=== PATIENT | male | born 1965 | race American Indian/Alaskan Native ===

== ENCOUNTER 2019-03-23 11:26 | Emergency (ER) | payer SELFPAY ==
[2019-03-23] MEDS ORDERED: HYDROmorphone 1 MG/1 ML INJ IV ONE ×3 (11:41→14:10)
[2019-03-23] MEDS ORDERED: ONDANSETRON 4 MG/2 ML INJ IV ONE ×2 (11:41→14:11)
--- NOTE | 2019-03-23 11:43 | Emergency Department Report ---
ED Fall HPI - General Stated Complaint: FELL OFF ROOF Time Seen by Provider: 03/23/19 11:31 Source: patient, family Mode of arrival: Ambulatory Limitations: No Limitations - History of Present Illness Initial Comments: Patient is a 53-year-old male that presents emergency room with complaints of neck pain and back pain and headache. Patient states he fell off a ladder approximately 10-12 feet in the air. Patient states he landed on his neck back of his head and middle back. Patient states his pain is 10 out of 10. Patient states pain is worse with movement and better with rest. Patient arrived via POV and the nursing staff remove the patient from the car and placed immediately on a backboard and a c-collar. Patient states he's having flank pain as well. MD Complaint: fall -: Sudden Fall From: from height (distance) (10 -12 feet) When Fall Occurred: unsure Fall Witnessed: yes, by bystander Place Fall Occurred: home Loss of Consciousness: unsure Prolonged Down Time?: no Symptoms Prior to Fall: none Location: head, neck, back Severity: severe Severity scale (0 -10): 10 Quality: stabbing Context: tripped/slipped Associated Symptoms: headache, neck pain - Related Data Previous Rx's Medication Instructions Recorded Last Taken Type Acetaminophen/Codeine [Tylenol 1 tab PO Q4HR PRN #12 tablet 03/23/19 Unknown Rx /Codeine # 3 tab] Cyclobenzaprine [Flexeril] 10 mg PO BID PRN #20 tablet 03/23/19 Unknown Rx Allergies Allergy/AdvReac Type Severity Reaction Status Date / Time No Known Allergies Allergy Unverified 03/23/19 11:43 ED Review of Systems ROS: Stated complaint: FELL OFF ROOF Other details as noted in HPI Constitutional: denies: chills, fever Eyes: denies: eye pain, eye discharge, vision change ENT: denies: ear pain, throat pain Respiratory: denies: cough, shortness of breath, wheezing Cardiovascular: chest pain. denies: palpitations Endocrine: no symptoms reported Gastrointestinal: abdominal pain. denies: nausea, diarrhea Genitourinary: denies: urgency, dysuria Musculoskeletal: back pain. denies: joint swelling, arthralgia Skin: denies: rash, lesions Neurological: denies: headache, weakness, paresthesias Psychiatric: denies: anxiety, depression Hematological/Lymphatic: denies: easy bleeding, easy bruising ED Past Medical Hx - Past Medical History Previous Medical History?: Yes Hx Hypertension: Yes - Surgical History Past Surgical History?: Yes - Family History Family history: no significant - Social History Smoking Status: Never Smoker Substance Use Type: None - Medications Home Medications: Home Medications Medication Instructions Recorded Confirmed Last Taken Type Acetaminophen/Codeine [Tylenol 1 tab PO Q4HR PRN #12 tablet 03/23/19 Unknown Rx /Codeine # 3 tab] Cyclobenzaprine [Flexeril] 10 mg PO BID PRN #20 tablet 03/23/19 Unknown Rx ED Physical Exam - General Limitations: No Limitations General appearance: alert, in no apparent distress - Head Head exam: Present: atraumatic, normocephalic - Eye Eye exam: Present: normal appearance, PERRL Pupils: Present: normal accommodation - ENT ENT exam: Present: mucous membranes moist - Neck Neck exam: Present: tenderness, other (in c-collar) - Respiratory Respiratory exam: Present: normal lung sounds bilaterally, chest wall tendern ess. Absent: respiratory distress - Cardiovascular Cardiovascular Exam: Present: regular rate, normal rhythm. Absent: systolic murmur, diastolic murmur, rubs, gallop - GI/Abdominal GI/Abdominal exam: Present: soft, tenderness, normal bowel sounds. Absent: distended - Rectal Rectal exam: Present: deferred - Extremities Exam Extremities exam: Present: normal inspection, full ROM - Back Exam Back exam: Present: normal inspection, tenderness, CVA tenderness (R), CVA tenderness (L), paraspinal tenderness, vertebral tenderness - Neurological Exam Neurological exam: Present: alert, oriented X3 - Psychiatric Psychiatric exam: Present: normal affect, normal mood - Skin Skin exam: Present: warm, dry, intact, normal color. Absent: rash ED Course Vital Signs 03/23/19 03/23/19 03/23/19 11:35 11:39 11:41 Temperature 97.5 F L Pulse Rate 62 61 Respiratory 18 18 Rate Blood Pressure 142/96 O2 Sat by Pulse 99 99 Oximetry 03/23/19 03/23/19 03/23/19 12:00 12:15 13:00 Temperature Pulse Rate 53 L 54 L 49 L Respiratory 13 12 Rate Blood Pressure 142/96 134/100 134/91 O2 Sat by Pulse 97 99 96 Oximetry 03/23/19 03/23/19 03/23/19 13:05 13:15 13:45 Temperature Pulse Rate 52 L Respiratory 16 10 L Rate Blood Pressure 131/90 140/95 O2 Sat by Pulse 96 96 Oximetry - Reevaluation(s) Reevaluation #1: Initial evaluation done. Patient currently in a c-collar. Patient examined and found to have back and neck tenderness. Patient also found to have line tenderness as well as chest tenderness. . Patient log rolled in accordance with ATLS guidelines. Patient will have a tucker scan and patient will be given pain medications. 03/23/19 11:43 Reevaluation #2: I discussed the current results with patient. Patient states his pain is better. Patient's c-collar removed since his C-spine is negative by CT. 03/23/19 14:31 Reevaluation #3: I discussed all results with patient. Discussed plan of care with patient. Patient stable for discharge. Patient discharged home. Patient agrees plan of care. Patient given discharge instructions. Patient given medication instructions. Patient voiced understanding of all instructions. 03/23/19 15:33 ED Medical Decision Making - Lab Data Result diagrams: 03/23/19 11:35 03/23/19 11:35 - Radiology Data Radiology results: report reviewed CT thoracic spine without contrast INDICATION: trauma. fall. pain. TECHNIQUE: Axial imaging performed through the thoracic spine without the use of contrast. Sagittal and coronal reconstructed images were also reviewed. All CT scans at this location are performed using CT dose reduction for ALARA by means of automated exposure control. COMPARISON: CT chest from today FINDINGS: Alignment: Spinal alignment is normal. Bones: There is no acute osseous abnormality. Mild multilevel discogenic DJD is present. Soft tissues: No acute or significant incidental soft tissue abnormality. IMPRESSION: No acute abnormality. NONENHANCED CT SCAN OF THE HEAD: INDICATION / CLINICAL INFORMATION: 53 years Male; trauma. fall. pain. TECHNIQUE: Routine CT head without contrast. All CT scans at this location are performed using CT dose reduction for ALARA by means of automated exposure control. COMPARISON: None. FINDINGS: BRAIN / INTRACRANIAL CONTENTS: I do not see intracranial sequela from the trauma. No scalp hematoma or air-fluid level in the visualized portions of the paranasal sinuses. No acute hemorrhage, mass effect, midline shift, hydrocephalus, or acute, large territorial infarct. No chronic infarct or focal atrophy. Normal brain volume and ventricular/sulcal size for age. No significant white matter abnormality. Please note these images have poor [id number] resulting in decreased contrast resolution. CRANIOCERVICAL JUNCTION: No significant abnormality. ORBITS: No significant abnormality of visualized orbits. SINUSES / MASTOIDS: No significant abnormality of the visualized paranasal sinuses or mastoid air cells. ADDITIONAL FINDINGS: None. IMPRESSION: I do not see intracranial sequela from the trauma. CT CHEST, ABDOMEN, AND PELVIS WITH IV CONTRAST INDICATION: Chest and abdominal pain after fall from roof. TECHNIQUE: Axial CT images were obtained through the chest, abdomen, and pelvis after 100 mL Omnipaque [address] scans at this location are performed using CT dose reduction for ALARA by means of automated exposure control. COMPARISON: None available. FINDINGS: MEDIASTINUM: No significant abnormality. HEART: No significant abnormality. THORACIC AORTA and ARTERIES: No significant abnormality. LUNGS: Mild dependent atelectasis is seen bilaterally without an additional significant pulmonary abnormality, pneumothorax or pleural effusion. LIVER: No significant abnormality. BILIARY:No significant abnormality. PANCREAS: No significant abnormality. SPLEEN: No significant abnormality. ADRENALS: No significant abnormality. KIDNEYS AND URETERS: There is a subcentimeter cyst along the right upper renal pole without additional significant abnormalities. GI TRACT:No significant abnormality of the stomach, small bowel or colon. Normal appendix. PERITONEUM: No free fluid. No free air. No fluid collection. LYMPH NODES: No significant adenopathy. AORTA and ARTERIES: No significant abnormality. URINARY BLADDER: No significant abnormality. REPRODUCTIVE ORGANS: No significant abnormality. ADDITIONAL FINDINGS: None. SKELETAL SYSTEM: No significant abnormality. IMPRESSION: No acute abnormality of the chest, abdomen or pelvis. CT spine spine without contrast INDICATION: trauma. fall. pain. Acute neck pain TECHNIQUE: Axial imaging performed through the cervical spine without the use of contrast. Sagittal and coronal reconstructed images were also reviewed. All CT scans at this location are performed using CT dose reduction for ALARA by means of automated exposure control. COMPARISON: None FINDINGS: Alignment: Spinal alignment is normal. Bones: There is no acute osseous abnormality. Mild multilevel discogenic DJD is present. Soft tissues: No acute or significant incidental soft tissue abnormality. IMPRESSION: No acute abnormality. - Medical Decision Making Patient is a 53-year-old male Emergency room with complaints of fall from a ladder. Patient's fall was approximately 10-12 feet. Patient complains of neck pain, back pain, unknown loss of consciousness, headache. During exam patient found to have neck tenderness, back tenderness, flank tenderness and thoracic back tenderness and lateral thoracic back tenderness. Patient had CT scans of the neck, T-spine, L-spine, abdomen and chest in accordance with ATLS guidelines. All a CT shows no acute findings. Patient is stable for discharge. Patient arrives in POV and a placed immediately on a spine board and c-collar. C-collar was removed after C-spine clear. Patient's labs unremarkable. - Differential Diagnosis sprain. strain. fx. contusion Critical Care Time: Yes Critical care time in (mins) excluding proc time.: 45 Critical care attestation.: If time is entered above; I have spent that time in minutes in the direct care of this critically ill patient, excluding procedure time. Critical Care Time: 45 minutes ED Disposition Clinical Impression: Neck pain, Flank pain Back pain Qualifiers: Back pain location: low back pain Chronicity: acute Back pain laterality: bilateral Sciatica presence: without sciatica Qualified Code(s): M54.5 - Low back pain Fall from ladder Qualifiers: Encounter type: initial encounter Qualified Code(s): W11.XXXA - Fall on and from ladder, initial encounter Headache Qualifiers: Headache type: post-traumatic Headache chronicity pattern: acute headache Intractability: not intractable Qualified Code(s): G44.319 - Acute post- traumatic headache, not intractable Concussion Qualifiers: Encounter type: initial encounter Loss of consciousness presence/duration: without LOC Qualified Code(s): S06.0X0A - Concussion without loss of consciousness, initial encounter Back contusion Qualifiers: Encounter type: initial encounter Laterality: unspecified laterality Qualified Code(s): S20.229A - Contusion of unspecified back wall of thorax, initial encounter Disposition: TO HOME OR SELFCARE Is pt being admited?: No Does the pt Need Aspirin: No Condition: Stable Instructions: Low Back Strain (ED), Contusion in Adults (ED), Cervical Sprain (ED), Muscle Spasm (ED), Back Pain (ED), Fall Prevention (ED) Additional Instructions: Patient to follow-up with primary care in 2-3 days. Patient to follow-up with orthopedist in 2-3 days. Patient to take Tylenol or ibuprofen when necessary for pain. Patient to return to ER condition worsens. Patient take meds as directed. Patient to rest. Patient to avoid strenuous exercise until cleared by primary care and orthopedics. Prescriptions: Cyclobenzaprine [Flexeril] 10 mg PO BID PRN #20 tablet PRN Reason: Muscle Spasm Acetaminophen/Codeine [Tylenol /Codeine # 3 tab] 1 tab PO Q4HR PRN #12 tablet PRN Reason: Pain Referrals: PRIMARY CAREMD [Primary Care Provider] - 2-3 Days EDISON ALBARADO MD [Staff Physician] - 2-3 Days Time of Disposition: 15:48
[2019-03-23 11:56] LABS: Hematocrit 45.8 % (35.5-45.6); Hemoglobin 14.8 gm/dl (11.8-15.2); Mean Corpuscular HGB Conc 32 % (32-34); Mean Corpuscular Volume 86 fl (84-94); Platelet Count 288 K/mm3 (140-440); Red Blood Count 5.34 M/mm3 (3.65-5.03); Red Cell Distribution Width 14.8 % (13.2-15.2)
[2019-03-23 12:05] LABS: Alanine Aminotransferase 24 units/L (7-56); Albumin 4.1 g/dL (3.9-5); BUN/Creatinine Ratio 12; Blood Urea Nitrogen 12 mg/dL (9-20); Calcium 9.5 mg/dL (8.4-10.2); Hemolysis Index 5
--- NOTE | 2019-03-23 13:31 | Cat Scan Report ---
CT spine spine without contrast INDICATION: trauma. fall. pain. Acute neck pain TECHNIQUE: Axial imaging performed through the cervical spine without the use of contrast. Sagittal and coronal reconstructed images were also reviewed. All CT scans at this location are performed us ing CT dose reduction for ALARA by means of automated exposure control. COMPARISON: None FINDINGS: Alignment: Spinal alignment is normal. Bones: There is no acute osseous abnormality. Mild multilevel discogenic DJD is present. Soft tissues: No acute or significant incidental soft tissue abnormality. IMPRESSION: No acute abnormality. Signer Name: Braeden Emerson MD Signed: 03/23/2019 1:26 PM Workstation Name: [id number]
--- NOTE | 2019-03-23 13:34 | Cat Scan Report ---
NONENHANCED CT SCAN OF THE HEAD: INDICATION / CLINICAL INFORMATION: 53 years Male; trauma. fall. pain. TECHNIQUE: Routine CT head without contrast. All CT scans at this location are performed using CT dos e reduction for ALARA by means of automated exposure control. COMPARISON: None. FINDINGS: BRAIN / INTRACRANIAL CONTENTS: I do not see intracranial sequela from the trauma. No scalp hematoma o r air-fluid level in the visualized portions of the paranasal sinuses. No acute hemorrhage, mass effect, midline shift, hydrocephalus, or acute, large territorial infarct. No chronic infarct or focal atrophy. Normal brain volume and ventricular/sulcal size for age. No sig nificant white matter abnormality. Please note these images have poor [id number]-hency resulting in decreased contrast resolution. CRANIOCERVICAL JUNCTION: No significant abnormality. ORBITS: No significant abnormality of visualized orbits. SINUSES / MASTOIDS: No significant abnormality of the visualized paranasal sinuses or mastoid air tiffany ls. ADDITIONAL FINDINGS: None. IMPRESSION: I do not see intracranial sequela from the trauma. Signer Name: Margie Castillo MD Signed: 03/23/2019 1:29 PM Workstation Name: [id number]
[2019-03-23 13:58] VITALS: BP 140/95
--- NOTE | 2019-03-23 14:11 | Cat Scan Report ---
CT CHEST, ABDOMEN, AND PELVIS WITH IV CONTRAST INDICATION: Chest and abdominal pain after fall from roof. TECHNIQUE: Axial CT images were obtained through the chest, abdomen, and pelvis after 100 mL Omnipaque [address] All [address] scans at this location are performed using CT dose reduction for ALARA by means of aut omated exposure control. COMPARISON: None available. FINDINGS: MEDIASTINUM: No significant abnormality. HEART: No significant abnormality. THORACIC AORTA and ARTERIES: No significant abnormality. LUNGS: Mild dependent atelectasis is seen bilaterally without an additional significant pulmonary abn ormality, pneumothorax or pleural effusion. LIVER: No significant abnormality. BILIARY:No significant abnormality. PANCREAS: No significant abnormality. SPLEEN: No significant abnormality. ADRENALS: No significant abnormality. KIDNEYS AND URETERS: There is a subcentimeter cyst along the right upper renal pole without additiona l significant abnormalities. GI TRACT:No significant abnormality of the stomach, small bowel or colon. Normal appendix. PERITONEUM: No free fluid. No free air. No fluid collection. LYMPH NODES: No significant adenopathy. AORTA and ARTERIES: No significant abnormality. URINARY BLADDER: No significant abnormality. REPRODUCTIVE ORGANS: No significant abnormality. ADDITIONAL FINDINGS: None. SKELETAL SYSTEM: No significant abnormality. IMPRESSION: No acute abnormality of the chest, abdomen or pelvis. Signer Name: Rob Vasques MD Signed: 03/23/2019 2:07 PM Workstation Name: [id number]
[2019-03-23] MEDS ORDERED: ONDANSETRON 4 MG/2 ML INJ ONE ×2 (14:13)
--- NOTE | 2019-03-23 15:25 | Cat Scan Report ---
CT thoracic spine without contrast INDICATION: trauma. fall. pain. TECHNIQUE: Axial imaging performed through the thoracic spine without the use of contrast. Sagittal and coronal reconstructed images were also reviewed. All CT scans at this location are performed us ing CT dose reduction for ALARA by means of automated exposure control. COMPARISON: CT chest from today FINDINGS: Alignment: Spinal alignment is normal. Bones: There is no acute osseous abnormality. Mild multilevel discogenic DJD is present. Soft tissues: No acute or significant incidental soft tissue abnormality. IMPRESSION: No acute abnormality. Signer Name: Braeden Emerson MD Signed: 03/23/2019 3:20 PM Workstation Name: [id number]
[2019-03-23 15:32] LABS: Bilirubin,Urine NEG (Negative); Blood,Urine NEG (Negative); Color,Urine Yellow (Yellow); Mucus,Urine FEW /HPF; Protein,Urine <15 mg/dL mg/dL (Negative); Urobilinogen,Urine < 2.0 mg/dL (<2.0)
--- NOTE | 2019-04-22 13:51 | Cat Scan Report ---
CT LUMBAR SPINE: 03/23/2019 INDICATION / CLINICAL INFORMATION: trauma. fall. pain. COMPARISON: None available. FINDINGS: CT images of the lumbar spine were obtained. Images are evaluated in the axial, coronal, and sagittal planes. This exam was marked as "completed" on 04/22/2019. There is no evidence of acute abnormality. Vertebral body heights are well preserved, with no eviden ce of fracture or intrinsic osseous lesion. There is slight retrolisthesis at the L3-4 level associated with mild diffuse disc bulging. Vertebral body alignment and disc profiles are otherwise unremarkable. PARASPINAL STRUCTURES: Unremarkable. IMPRESSION: No acute abnormality. This exam was marked as "completed" on 04/22/2019. All CT scans at this location are performed using dose reduction to ALARA by means of automated expos ure control. Signer Name: Eladio Mccabe MD Signed: 04/22/2019 1:47 PM Workstation Name: [id number]
== END 2019-03-23 16:20 | disposition home or self-care (01) ==
LOC: ED 11:26
DX: S06.0X0A Concussion without loss of consciousness, initial encounter (principal); S20.229A Contusion of unspecified back wall of thorax, initial encounter; M54.2 Cervicalgia; Y99.8 Other external cause status; R10.9 Unspecified abdominal pain; I10 Essential (primary) hypertension; Z79.899 Other long term (current) drug therapy; W11.XXXA Fall on and from ladder, initial encounter; Y93.89 Activity, other specified; Y92.009 Unspecified place in unspecified non-institutional (private) residence as the place of occurrence of the external cause
CPT/HCPCS: 36415; 70450; 71260; 72125; 72128; 72131; 74177; 80053; 81001; 85027; 96374; 96375; 96376; 99284; J1170; J2405; Q9967